=== PATIENT | female | born 1980 | race Two or more races ===

== ENCOUNTER 2018-02-20 22:53 | Emergency (ER) | payer MEDICAID ==
[~2018-02-20] VITALS: Ht 160 cm; Wt 91.6 kg
[2018-02-20] MEDS ORDERED: PREDNISONE10 MG ORAL (23:04)
[2018-02-20] MEDS ORDERED: SULFAMETHOXAZO480 ML ORAL (23:05)
--- NOTE | 2018-02-20 23:09 | NUR ---
ED Nurse Note: Pt walked in ER and c/o allergy reaction and rash on upper body. Pt states she took Bactrim then got rash since last week. Pt is AO [id number], VSS, on room air no distress. LAYTON seen Pt at bedside.
[2018-02-20 23:10] VITALS: BP 149/88
--- NOTE | 2018-02-20 23:30 | NUR ---
ED Nurse Note: Urine sample sent to Lab.
[2018-02-20] MEDS ORDERED: ATARAX25 MG ORAL (23:33)
[2018-02-20] MEDS ORDERED: PREDNISONE20 MG ORAL (23:33)
[2018-02-21] VITALS: BP 135/79
--- NOTE | 2018-02-21 00:04 | NUR ---
ED Nurse Note: Pt cleared DC by ERMMaribell. Pt is AO x 4times, VSS, on room air no distress. Belongings given to Pt. DC and Meds instructions given to Pt, Pt understood well. ID bend removed. Pt walked out unit with steady gait.
[2018-02-21 00:06] VITALS: BP 135/79
--- NOTE | 2018-02-21 00:08 | Emergency Room Report ---
History of Present Illness General Chief Complaint: Allergic Reaction Source: Patient Present Illness HPI Patient is a 37-year-old female who presented after increased itchy skin rash. Patient had onset of symptoms approximately 1 week ago. Patient had recently been taking antibiotics after ear infection. Patient was noted to have prior history of ear infection that she was prescribed antibiotics and subsequently developed a rash to her left lower extremity which she was given prescription for Bactrim for. Patient was noted to have no fever. She denies any increased cough. She denies being .Patient has been using Caladryl cream as well as hydrocortisone and Atarax. This had not improved. Allergies: Coded Allergies: No Known Allergies (Unverified , 02/20/18) Patient History Past Medical History: see triage record Last Menstrual Period: JAN 29 Now: No Reviewed Nursing Documentation: PMH: Agreed; PSxH: Agreed Nursing Documentation-PMH Past Medical History: No Stated History Hx Gastrointestinal Problems: Yes - GAl bladder surg Review of Systems All Other Systems: negative except mentioned in HPI Physical Exam Vital Signs Date Time Temp Pulse Resp B/P (MAP) Pulse Ox O2 Delivery O2 Flow Rate FiO2 02/20/18 22:55 98.1 79 16 164/79 99 Room Air General Appearance: well appearing, no apparent distress, alert, GCS 15, non- toxic Head: normocephalic, atraumatic ENT: hearing grossly normal, normal voice, moist mucus membranes, other - no blistering or vesicles Neck: full range of motion, supple Respiratory: no respiratory distress, speaking full sentences Cardiovascular #1: normal inspection Gastrointestinal: normal inspection Musculoskeletal: no calf tenderness, other - left medial leg rash distal near medial malleolus, no discharge Neurologic: normal inspection, alert, oriented x3, responsive, 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 Differential diagnosis include was not limited to allergic reaction, [place] syndrome, fixed drug eruption and among others. Patient has a benign exam and does not appear to require any further imaging or laboratory testing at this time. testing to be negative. Patient's rash appears to be most consistent with a fixed drug eruption. The patient is advised to follow up with primary care doctor in 2- 3days. Patient is advised to return if any worsening condition or if any changes in status that are concerning. This report is dictated with [employer] track layer software which may occasionally lead to discrepancies related to use of this software. Last Vital Signs Date Time Temp Pulse Resp B/P (MAP) Pulse Ox O2 Delivery O2 Flow Rate FiO2 02/20/18 23:13 72 17 Room Air 02/20/18 23:10 98.6 149/88 99 Status: improved Disposition: HOME, SELF-CARE Condition: Stable Scripts Prednisone* (PREDNISONE*) 20 Mg Tablet 40 MG ORAL DAILY, #10 TAB Prov: Kevin Polo MD 02/20/18 Hydroxyzine HCl (Hydroxyzine HCl) 25 Mg Tablet 25 MG ORAL FOUR TIMES A DAY, #30 TAB Prov: Kevin Polo MD 02/20/18 Patient Instructions: Drug Rash Kevin Polo MD Feb 21, 2018 00:08
== END 2018-02-21 00:08 | disposition home or self-care (01) ==
LOC: EMR 23:25
DX: R21 Rash and other nonspecific skin eruption (principal)
CPT/HCPCS: 81025; 99283; J7512

== ENCOUNTER 2018-04-30 16:53 | Emergency (ER) | payer MEDICAID ==
[~2018-04-30] VITALS: Ht 162.6 cm; Wt 90.7 kg
[~2018-04-30 16:53] MED LIST: ATARAX25 MG ORAL; PREDNISONE10 MG ORAL; PREDNISONE20 MG ORAL; SULFAMETHOXAZO480 ML ORAL
[2018-04-30] MEDS ORDERED: NKM (17:07)
--- NOTE | 2018-04-30 17:25 | Emergency Room Report ---
History of Present Illness General Chief Complaint: Flu Like Symptoms Source: Patient Present Illness HPI 38-year-old female patient presents the ER complaining of right ear pain and cough for the past 2 days. Reports pain with ear pulling. Denies use Q-tips. Denies recent swimming. Denies recent travel outside the country. Denies fever. Reports cough with sputum, denies hemoptysis. Reports chest pain that is reproducible with cough. Denies shortness of breath. Reports sick contacts at home. Reports is been using otic antibiotic eardrops during this time, states that she has a history of repeated ear infections and so had antibiotics at home. Denies other aggravating or relieving factors. Also complaining of sore throat during this time. Henry hx of heart disease or asthma. Denies history of heart disease or diabetes. Allergies: Coded Allergies: No Known Allergies (Unverified , 02/20/18) Patient History Past Medical History: see triage record Last Menstrual Period: 04/29/2018 Reviewed Nursing Documentation: PMH: Agreed; PSxH: Agreed Nursing Documentation-PMH Past Medical History: No History, Except For Hx Gastrointestinal Problems: Yes - GAl bladder surg Review of Systems All Other Systems: negative except mentioned in HPI Physical Exam Vital Signs Date Time Temp Pulse Resp B/P (MAP) Pulse Ox O2 Delivery O2 Flow Rate FiO2 04/30/18 17:03 98.1 87 16 142/79 99 Room Air Sp02 EP Interpretation: reviewed, normal General Appearance: well appearing, no apparent distress, alert, GCS 15, non- toxic Head: normocephalic, atraumatic, other - Right-sided frontal sinus tender to palpation Eyes: bilateral eye normal inspection, bilateral eye PERRL ENT: hearing grossly normal, normal pharynx, no angioedema, normal voice, TMs + canals normal, uvula midline, moist mucus membranes, nasal congestion, other - Right ear: Mild edema of ear canal, pain with ear pulling, TM intact, no effusion, no erythema or edema of TM Neck: full range of motion, no meningismus, no bony tend Respiratory: lungs clear, normal breath sounds, no rhonchi, no respiratory distress, no accessory muscle use, no wheezing, speaking full sentences, other - Superior anterior chest tender to palpation, no deformity, no flail chest, chest symmetrical Cardiovascular #1: regular rate, rhythm, no edema Cardiovascular #2: 2+ radial (R), 2+ radial (L) Musculoskeletal: back normal, digits/nails normal, gait/station normal, normal range of motion, non-tender Neurologic: alert, oriented x3, responsive, motor strength/tone normal, sensory intact Psychiatric: mood/affect normal Skin: no rash Medical Decision Making PA Attestation Dr. Reed is my supervising Physician whom patient management has been discussed with. Diagnostic Impression: Primary Impression: Sinusitis Additional Impression: Otitis externa ER Course Pt presents to ED c/o right ear pain, cough, sore throat x 2 days. DDX considered but are not limited to influenza, viral URI, pneumonia, strep throat, rhinitis, sinusitis, otitis media, otitis externa, rhinitis, sinusitis, otitis media, otitis externa, cellulitis, mastoiditis, cerumen impaction. Low suspicion for mastoiditis, no swelling or erythema noted posterior to ear, no TTP. On PE, chest is TTP; chest pain likely musculoskeletal in nature secondary to cough, does not require cardiac workup at this time. Patient instructed to take NSAIDs as needed for pain symptoms. VITAL SIGNS are WNL, patient is afebrile. ER COURSE: CXR shows no acute disease per the preliminary reading. Low suspicion for pneumonia, does not require antibiotics at this time. Lungs clear to auscultation, no wheezes, rhonci or rales. patient afebrile. no tonsillar exudates, no pharyngeal erythema, history of cough, no fever, no stridor, uvula midline, low suspicion for peritonsillar abscess. Tenderness to palpation over over sinus, likely sinusitis, will provide patient with treatment. Does not require antibiotic treatment at this time due to no fever and low duration of symptoms. Repeat exam shows nonerythematous TM without effusion, no rupture, erythematous and edematous ear canal. likely otitis externa. Continue taking antibiotic eardrops as previously taken. Continue taking medications as previously instructed. Avoid swimming. do not use q-tips. Followup with ENT specialist. Likely viral etiology of symptoms. Symptomatic treatment. drink plenty of fluids. Salt water gargles for sore throat. Followup with PCP for further treatment and/or referral as needed. DISCHARGE: At this time pt is stable for d/c to home. Patient is resting comfortably, in no acute distress, nontoxic appearing. Patient to take medications as instructed Will provide with patient care instructions and any necessary prescriptions. Care plan and follow-up instructions provided. Patient instructed to follow-up with primary care provider in 3 - 5 days. Patient questions asked and answered. Patient reports understanding and agreement to treatment plan. ER precautions given. Patient instructed to return to ER immediately for any new or worsening of symptoms including but not limited to increasing SOB, persistent fever, intractable vomiting. - Please note that this Emergency Department Report was dictated using Zoomaaloutboard technician technology software, occasionally this can lead to erroneous entry secondary to interpretation by the dictation equipment. Chest X-Ray Diagnostic Results Chest X-Ray Diagnostic Results : Chest X-Ray Ordered: Yes # of Views/Limited/Complete: 1 View Indication: Chest Pain EP Interpretation: Yes PA Xray: Interpretation reviewed, by supervising MD, and agrees with findings. Interpretation: no consolidation, no effusion, no pneumothorax, no acute cardiopulmonary disease Impression: No acute disease AMANDEEP Scribso Text Jessee Garcia PA-Marya Last Vital Signs Date Time Temp Pulse Resp B/P (MAP) Pulse Ox O2 Delivery O2 Flow Rate FiO2 04/30/18 17:03 98.1 87 16 142/79 99 Room Air Disposition: HOME, SELF-CARE Condition: Stable Scripts Acetaminophen* (TYLENOL EXTRA STRENGTH*) 500 Mg Tablet 500 MG ORAL Q8H PRN for Prn Headache/Temp > 101, #30 TAB 0 Refills Prov: Tyshawn Garcia 04/30/18 Loratadine/Pseudoephedrine (CLARITIN-D 24 HOUR TABLET) 1 Each Tab.er.24h 1 TAB PO DAILY, #24 TAB Prov: Tyshawn Garcia 04/30/18 Fluticasone Propionate* (FLUTICASONE PROPIONATE*) 16 Gm [place].susp 1 SPRAY NASAL TWICE A DAY, #16 GM Prov: Tyshawn Garcia 04/30/18 Patient Instructions: Costochondritis, [id number], Earache, Sinus Headache, [id number], Sinusitis, Adult, [id number] Additional Instructions: Followup with primary care provider in 3 -5 days. Take medications as directed. Patient questions asked and answered. ER precautions given, patient instructed to return to ER immediately for any new or worsening of symptoms. Tyshawn Garcia Apr 30, 2018 17:25
[2018-04-30] MEDS ORDERED: Lidocaine 2% Visc 15ml soln ORAL ONE (17:30)
--- NOTE | 2018-04-30 17:44 | Diagnostic Imaging Report ---
EXAM: XR Chest, 1 View CLINICAL HISTORY: COUGH TECHNIQUE: Frontal view of the chest. COMPARISON: No relevant prior studies available. FINDINGS: Lungs: Unremarkable. No consolidation. Pleural space: Unremarkable. No pneumothorax. Heart: Unremarkable. No cardiomegaly. Mediastinum: Unremarkable. Bones/joints: Unremarkable. IMPRESSION: No acute cardiopulmonary disease.
[2018-04-30] MEDS ORDERED: TYLENOL EXTRA500 MG ORAL (17:56)
[2018-04-30] MEDS ORDERED: CLARITIN-D 241 EACH PO (17:56)
[2018-04-30] MEDS ORDERED: FLUTICASONE PRO16 G1 NASAL (17:56)
[2018-04-30 18:10] VITALS: BP 133/81
--- NOTE | 2018-04-30 18:10 | NUR ---
ER DISCHARGE NOTE: Patient is cleared to be discharged per ERMD with daughter, pt is aox4, on room air, with stable vital signs. pt was given dc and prescription instructions, pt was able to verbalize understanding, pt id band removed. pt is able to ambulate with steady gait. pt took all belongings.
== END 2018-04-30 18:10 | disposition home or self-care (01) ==
LOC: EMR 17:25
DX: H60.91 Unspecified otitis externa, right ear (principal); J32.9 Chronic sinusitis, unspecified; R07.9 Chest pain, unspecified
CPT/HCPCS: 71045; 99283